=== PATIENT | female | born 1965 ===

== ENCOUNTER 2018-08-14 22:11 | Inpatient (IN) | payer SELFPAY ==
[2018-08-15 00:30] LABS: BASO % 0.4 % (0.0-2.0); HEMOGLOBIN 14.3 g/dL (12.0-16.0); MEAN CELL VOLUME 88.2 fl (81.0-99.0); MEAN CORPUSCULAR HEMOGLOBIN 28.6 pg (27.0-31.0); MEAN CORPUSCULAR HGB CONC 32.4 g/dL (33.0-37.0); MEAN PLATELET VOLUME 11.6 fl (7.2-11.7); MONO # 0.7 K/uL (0.0-0.8); MONO % 13.6 % (0.0-10.0); NEUT # 3.4 K/uL (1.8-7.0); RBC 5.01 Mil/uL (3.80-5.20); RED CELL DISTRIBUTION WIDTH 13.5 % (11.5-14.5); WHITE BLOOD COUNT 5.2 K/uL (4.8-10.8)
--- NOTE | 2018-08-15 00:41 | ED PDOC ---
HPI: Altered Mental Status Time Seen by Provider: 08/14/18 22:43 Chief Complaint (Nursing): Flu-like Symptoms Chief Complaint (Provider): AMS History Per: Patient, Family () History/Exam Limitations: Clinical Condition Onset/Duration Of Symptoms: Days (x1 (Sunday)) Additional Complaint(s): 53 y/o female with no significant PMHx was brought to the ED by for evaluation of AMS, since yesterday. brought her to the ED because she was talking nonsensically since Sunday. He states that at times she has been complaining of headaches. She is emotionally labile and at appears confused at time. When provider spoke with patient she appears to be internally preoccupied. Patient does not report consistently and appears to be responding to some internal stimulus. Patient denies pain but had headache earlier. Provider asked patient if she has been preoccupied and patient says yes, she hasn't spoken to her mother for a year. However, reports she spoke to her mother a month ago. Denies associated fever, chills, nausea, or vomiting. Patient is able to walk but reports she appears unsteady at times. NIHSS Stroke Scale - Date/Time Evaluation Performed Date Performed: 08/15/18 - How Severe is the Stroke Level of Consciousness: 0=Alert LOC to Questions: 0=Both comments correct LOC to commands: 0=Obeys both correctly Best Gaze: 0=Normal Visual: 0=No visual loss Facial: 0=Normal Motor Arm - Left: 0=No drift Motor Arm - Right: 0=No drift Motor Leg - Left: 0=No drift Motor Leg - Right: 0=No drift Limb Ataxia: 0=Absent Sensory: 0=Normal Best Language: 0=No aphasia Dysarthia: 0=Normal articulation Extinction & Inattention (Neglect): 0=Normal, no object Score: 0 Past Medical History Reviewed: Historical Data, Nursing Documentation, Vital Signs Vital Signs: Last Vital Signs Temp 98.4 F 08/14/18 22:34 Pulse 75 08/14/18 22:34 Resp 16 08/14/18 22:34 BP 116/64 08/14/18 22:34 Pulse Ox 98 08/14/18 22:34 - Medical History PMH: No Chronic Diseases - Surgical History Surgical History: - Family History Family History: States: Unknown Family Hx - Social History Current smoker - smoking cessation education provided: No Alcohol: None Drugs: Denies - Home Medications Home Medications: Ambulatory Orders Medication Instructions Recorded RX: No Known Home Med 08/15/18 - Allergies Allergies/Adverse Reactions: Allergies Allergy/AdvReac Type Severity Reaction Status Date / Time No Known Allergies Allergy Verified 08/14/18 23:37 Review of Systems ROS Statement: Except As Marked, All Systems Reviewed And Found Negative Constitutional: Negative for: Fever, Chills Gastrointestinal: Negative for: Nausea, Vomiting Neurological: Positive for: Confusion, Altered Mental Status, Headache Physical Exam - Reviewed Nursing Documentation Reviewed: Yes Vital Signs Reviewed: Yes - Physical Exam Appears: Positive for: Well, Non-toxic, No Acute Distress Head Exam: Positive for: ATRAUMATIC, NORMAL INSPECTION, NORMOCEPHALIC Skin: Positive for: Normal Color, Warm, DRY Eye Exam: Positive for: EOMI, Normal appearance, PERRL ENT: Positive for: Normal ENT Inspection Neck: Positive for: Normal, Painless ROM, Supple (Kernig and Budzinski are negative) Cardiovascular/Chest: Positive for: Regular Rate, Rhythm. Negative for: Murmur Respiratory: Positive for: Normal Breath Sounds. Negative for: Respiratory Distress Gastrointestinal/Abdominal: Positive for: Normal Exam, Soft. Negative for: Tenderness Back: Positive for: Normal Inspection Extremity: Positive for: Normal ROM. Negative for: Pedal Edema, Deformity Neurologic/Psych: Positive for: Alert, anode builder II-XII, Oriented (x2; person and place; disoriented to time), Mood/Affect (Internally preoccupied; affect flat), Gait (steady). Negative for: Motor/Sensory Deficits, Aphasia (clear speech), Facial Droop - Laboratory Results Result Diagrams: 08/14/18 23:50 08/14/18 23:50 - ECG O2 Sat by Pulse Oximetry: 98 (RA) Pulse Ox Interpretation: Normal Medical Decision Making Medical Decision Making: Time: 23:37 Initial Impression: 53 y/o with mental status changes. Possible acute stress reaction vs. psychotic episode. Initial Plan: * CT Head * Labs 00:34 CT head FINDINGS: BRAIN No evidence for acute intracranial hemorrhage. VENTRICLES: No hydrocephalus. ORBITS: The orbits are unremarkable. SINUSES AND MASTOIDS: The paranasal sinuses and mastoid air cells are clear. BONES: No evidence for displaced calvarial fracture. SOFT TISSUES: The visualized extracranial soft tissues are unremarkable. The paranasal sinuses are clear. The mastoid air cells are normally aerated. MISCELLANEOUS: No evidence for acute territorial infarction. IMPRESSION: 1. No evidence for acute intracranial abnormality. 01:[address] reviewed show no clinically significant abnormalities. Patient was evaluated by crisis and was cleared. However, in provider's opinion patient's mentation is inappropriate for discharge. Patient is slow to to respond and unable to provide responses to basic questions such as month, year, place of employment and occupation. Patient will be admitted for further work up including Neurology and Psychiatric consult. Case referred to Dr. Mesa. Diagnosis is Altered Mental status. Scribe Attestation: Documented by Jaems Lopez acting as a scribe for Conrado Lee MD. Provider Scribe Attestation: All medical record entries made by the Scribe were at my direction and personally dictated by me. I have reviewed the chart and agree that the record accurately reflects my personal performance of the history, physical exam, medical decision making, and the department course for this patient. I have also personally directed, reviewed, and agree with the discharge instructions and disposition. Disposition - Clinical Impression Clinical Impression: Altered mental status - Patient ED Disposition Is Patient to be Admitted: Yes - Disposition Disposition Time: 01:30 Condition: FAIR
[2018-08-15 00:42] LABS: ALB/GLOB RATIO 1.2 (1.0-2.1); ALBUMIN 4.3 g/dL (3.5-5.0); ALT/SGPT 31 U/L (9-52); AST/SGOT 33 U/L (14-36); BLOOD UREA NITROGEN 15 mg/dl (7-17); CALCIUM 9.3 mg/dL (8.4-10.2); GFR NON-AFRICAN AMERICAN > 60
--- NOTE | 2018-08-15 02:27 | CP.PCM.HP ---
<Maria Ines Goss - Last Filed: 08/15/18 02:27> History of Present Illness - History of Present Illness History of Present Illness: 53 yo F with no known significant medical history, admitted due to AMS. Pt was brought to the ED by for evaluation of AMS, which states started on Saturday 08/12, and worsened by 08/14, which is when he brought her in. As per ED note, claims she was talking nonsensically since Sunday morning and has been complaining of a headache. He states that for the past 2 days, she has been crying all day and does not answer him why, but he thought it was because of her headache. Patient's behavior is observed to be bizarre and she cannot provide meaningful history, does not give consistent answers and appears preoccupied. She is AAO x 2 ; self and president; does not know date. When observed in ED, she was dressed in regular clothes rather than hospital gown; as per ED RN, she changed back into regular clothes on her own, however did not understand what to do with the gown when it was initially given to her and needed 2 people to help her change. Denies auditory/visual hallucinations. States she has mild headache now but only when prompted specifically about it, otherwise states she does not feel pain/is unbothered. As per ED note, patient stated she has not talked to her mother in 1 year, but states she spoke with her recently; patient does not correct upon hearing this. She remains with flat affect as describes that he does not know why she is acting differently. Denies associated fever, chills, nausea, or vomiting, chest pain, difficulty breathing, difficulty voiding/stooling; denies recent illness (though as per ice cream vault worker note, stated that she had cough/fever on Sunday, but den ied to this pattern chart writer). Patient is able to walk but reports she appears unsteady at times. No PMD MEd hx: none, denies Surg hx: c-sec 2003 in [place] Fam hx: no family history of chronic or psych issues, as per pt's Soc hx: no tobacco, alcohol or drugs; lives with and 14 yr old daughter Allergies: nkda Medications: none ED course: Vitals stable; BP 116/64, HR 75, O2 sat 98 on RA, RR 16, T 98.4 Labs show no electrolyte abnormalities or derangement, ammonia low, troponin neg CT head: Impresssion: No evidence for acute intracranial abnormality. UDS ordered UA ordered Crisis eval Art Educator eval pt - as per ice cream vault worker, pt cleared. Present on Admission - Present on Admission Any Indicators Present on Admission: No Review of Systems - Review of Systems Review of Systems: limited ROS as per HPI Past Patient History - Past Social History Alcohol: None Drugs: Denies - CARDIAC Hx Cardiac Disorders: No Hx Hypertension: No - PULMONARY Hx Tuberculosis: No - NEUROLOGICAL HX Cerebrovascular Accident: No Hx Seizures: No - HEMATOLOGICAL/ONCOLOGICAL Hx Cancer: No Hx Human Immunodeficiency Virus (HIV): No - GENITOURINARY/GYNECOLOGICAL Hx Sexually Transmitted Disorders: No - PSYCHIATRIC Hx Substance Use: No - SURGICAL HISTORY Hx Section: Yes Meds Allergies/Adverse Reactions: Allergies Allergy/AdvReac Type Severity Reaction Status Date / Time No Known Allergies Allergy Verified 08/14/18 23:37 Physical Exam - Constitutional Appears: No Acute Distress - Head Exam Head Exam: NORMAL INSPECTION - Eye Exam Eye Exam: EOMI, Normal appearance, PERRL - ENT Exam ENT Exam: Normal Oropharynx - Neck Exam Neck exam: Positive for: Full Rom, Normal Inspection. Negative for: Meningismus, Tenderness - Respiratory Exam Respiratory Exam: Clear to Auscultation Bilateral, NORMAL BREATHING PATTERN. absent: Wheezes, Respiratory Distress - Cardiovascular Exam Cardiovascular Exam: REGULAR RHYTHM, +S1, +S2 - GI/Abdominal Exam GI & Abdominal Exam: Soft. absent: Tenderness Additional comments: obese - Extremities Exam Extremities exam: Positive for: full ROM, normal capillary refill, normal inspection. Negative for: calf tenderness, pedal edema - Neurological Exam Neurological exam: Alert Additional comments: AAO x 2 ; self and president. Does not know date. Moves all 4 extremities spontaneously No nystagmus 5/5 strength in all 4 ext Neg Kernig sign Neg Brudzinski sign - Psychiatric Exam Psychiatric exam: Flat Affect Additional comments: flat affect, appears preoccupied, bizarre behavior - Skin Skin Exam: Dry, Intact Additional comments: no bruises seen in exposed areas Results - Vital Signs Recent Vital Signs: Last Vital Signs Temp 98.4 F 08/14/18 22:34 Pulse 75 08/14/18 22:34 Resp 16 08/14/18 22:34 BP 116/64 08/14/18 22:34 Pulse Ox 98 08/15/18 01:33 - Labs Result Diagrams: 08/14/18 23:50 08/14/18 23:50 Labs: Laboratory Results - last 24 hr 08/14/18 08/14/18 08/14/18 23:50 23:50 23:50 WBC 5.2 RBC 5.01 Hgb 14.3 Hct 44.2 MCV 88.2 MCH 28.6 MCHC 32.4 L RDW 13.5 Plt Count 111 L MPV 11.6 Neut % (Auto) 66.0 Lymph % (Auto) 20.0 [place] % (Auto) 13.6 H Eos % (Auto) 0.0 Baso % (Auto) 0.4 Neut # (Auto) 3.4 Lymph # (Auto) 1.0 [place] # (Auto) 0.7 Eos # (Auto) 0.0 Baso # (Auto) 0.0 Sodium 138 Potassium 3.7 Chloride 99 Carbon Dioxide 26 Anion Gap 17 BUN 15 Creatinine 0.8 Est GFR ( Amer) > 60 Est GFR (Non-Af Amer) > 60 POC Glucose (mg/dL) Random Glucose 106 H Lactic Acid Calcium 9.3 Magnesium 2.1 Total Bilirubin 0.5 AST 33 ALT 31 Alkaline Phosphatase 107 Ammonia < 9 L Troponin I < 0.0120 Total Protein 7.7 Albumin 4.3 Globulin 3.5 Albumin/Globulin Ratio 1.2 Alcohol, Quantitative < 10 08/14/18 08/14/18 23:50 23:50 WBC RBC Hgb Hct MCV MCH MCHC RDW Plt Count MPV Neut % (Auto) Lymph % (Auto) [place] % (Auto) Eos % (Auto) Baso % (Auto) Neut # (Auto) Lymph # (Auto) [place] # (Auto) Eos # (Auto) Baso # (Auto) Sodium Potassium Chloride Carbon Dioxide Anion Gap BUN Creatinine Est GFR ( Amer) Est GFR (Non-Af Amer) POC Glucose (mg/dL) 109 Random Glucose Lactic Acid 1.0 Calcium Magnesium Total Bilirubin AST ALT Alkaline Phosphatase Ammonia Troponin I Total Protein Albumin Globulin Albumin/Globulin Ratio Alcohol, Quantitative Assessment & Plan - Assessment and Plan (Free Text) Assessment: 53 yo F with no known significant medical history, admitted due to AMS. Plan: Altered Mental Status - Continue workup to r/o organic cause - UA - TSH - B12 - RPR - HIV - UDS - Upreg - CBC - CMP - MRI brain w/ and w/o contrast - Fall risk - Psych consult Diet - Reg diet DVT prophylaxis - SCD for now Patient seen/examined w/ Dr. Mesa. <MosheJoshua - Last Filed: 08/15/18 06:40> Results - Vital Signs Recent Vital Signs: Last Vital Signs Temp 98.1 F 08/15/18 04:42 Pulse 64 08/15/18 04:42 Resp 19 08/15/18 04:42 BP 117/75 08/15/18 04:42 Pulse Ox 97 08/15/18 04:42 - Labs Result Diagrams: 08/14/18 23:50 08/14/18 23:50 Labs: Laboratory Results - last 24 hr 08/14/18 08/14/18 08/14/18 23:50 23:50 23:50 WBC 5.2 RBC 5.01 Hgb 14.3 Hct 44.2 MCV 88.2 MCH 28.6 MCHC 32.4 L RDW 13.5 Plt Count 111 L MPV 11.6 Neut % (Auto) 66.0 Lymph % (Auto) 20.0 [place] % (Auto) 13.6 H Eos % (Auto) 0.0 Baso % (Auto) 0.4 Neut # (Auto) 3.4 Lymph # (Auto) 1.0 [place] # (Auto) 0.7 Eos # (Auto) 0.0 Baso # (Auto) 0.0 Sodium 138 Potassium 3.7 Chloride 99 Carbon Dioxide 26 Anion Gap 17 BUN 15 Creatinine 0.8 Est GFR ( Amer) > 60 Est GFR (Non-Af Amer) > 60 POC Glucose (mg/dL) Random Glucose 106 H Lactic Acid Calcium 9.3 Magnesium 2.1 Total Bilirubin 0.5 AST 33 ALT 31 Alkaline Phosphatase 107 Ammonia < 9 L Troponin I < 0.0120 Total Protein 7.7 Albumin 4.3 Globulin 3.5 Albumin/Globulin Ratio 1.2 Alcohol, Quantitative < 10 08/14/18 08/14/18 23:50 23:50 WBC RBC Hgb Hct MCV MCH MCHC RDW Plt Count MPV Neut % (Auto) Lymph % (Auto) [place] % (Auto) Eos % (Auto) Baso % (Auto) Neut # (Auto) Lymph # (Auto) [place] # (Auto) Eos # (Auto) Baso # (Auto) Sodium Potassium Chloride Carbon Dioxide Anion Gap BUN Creatinine Est GFR ( Amer) Est GFR (Non-Af Amer) POC Glucose (mg/dL) 109 Random Glucose Lactic Acid 1.0 Calcium Magnesium Total Bilirubin AST ALT Alkaline Phosphatase Ammonia Troponin I Total Protein Albumin Globulin Albumin/Globulin Ratio Alcohol, Quantitative Attending/Attestation - Attestation I have personally seen and examined this patient.: Yes I have fully participated in the care of the patient.: Yes I have reviewed all pertinent clinical information: Yes Notes (Text): 08/15/18 05:43 I saw and examined this patient shoulder to shoulder with Dr Goss. I agree with the assessment and plan This is a 53 years old female brought to the ED with 2-3 days of mild diffuse headache, dizziness body aches and subjective fever. She appears to have unsteady gait, poor memory having to look at her for to answer, confused. Flat affect, an unconscious restlessness in bed, appearing as if she wants to get out of the bed. Appearing as a patient in a prolonged post ictal state vs a depressive state, r/o influenza encephalitis. Head CT read as no pathological findings. We will follow Influenza A&B antibody, Drug Screen, TSH, B12 level, RPR, HIV and MRI brain with and without contrast Consult Psychiatry We will consult Neurology for possible seizure. Joshua Mesa MD
[2018-08-15 06:28] LABS: BASO % 0.6 % (0.0-2.0); EOS % 0.1 % (0.0-4.0); HEMOGLOBIN 13.9 g/dL (12.0-16.0); LYMPH # 0.7 K/uL (1.0-4.3); LYMPH % 21.9 % (20.0-40.0); MEAN CELL VOLUME 87.9 fl (81.0-99.0); MEAN CORPUSCULAR HEMOGLOBIN 28.5 pg (27.0-31.0); MEAN CORPUSCULAR HGB CONC 32.4 g/dL (33.0-37.0); MEAN PLATELET VOLUME 10.9 fl (7.2-11.7); MONO # 0.4 K/uL (0.0-0.8); MONO % 13.9 % (0.0-10.0); NEUT # 2.1 K/uL (1.8-7.0); NEUT % 63.5 % (50.0-75.0); RBC 4.9 Mil/uL (3.80-5.20); RED CELL DISTRIBUTION WIDTH 13.7 % (11.5-14.5); WHITE BLOOD COUNT 3.2 K/uL (4.8-10.8)
[2018-08-15 06:42] LABS: BLOOD UREA NITROGEN 15 mg/dl (7-17); CALCIUM 9.1 mg/dL (8.4-10.2); GFR NON-AFRICAN AMERICAN > 60
[2018-08-15] MEDS ORDERED: Potassium Chloride 20 mEq/15 ml LIQ UD PO ONE (08:00)
--- NOTE | 2018-08-15 08:04 | CP.PCM.CON ---
History of Present Illness - History of Present Illness History of Present Illness: Psychiatry consult note CC: AMS HPI: 53 yo female w/ no past psychiatric history, presented w/ AMS. Patient is currently A + O x self and hospital. She denies acute depression/anxiety/AH/VH/paranoia/delusions/SI/HI. Patient denies acute psychiatric complaints. She is a poor historian and history below obtained from chart. No PMD MEd hx: none, denies Surg hx: c-sec 2003 in [facility] hx: no family history of chronic or psych issues, as per pt's Soc hx: no tobacco, alcohol or drugs; lives with and 14 yr old daughter Allergies: nkda Medications: none CT head: Impresssion: No evidence for acute intracranial abnormality. Impression: 53 yo female w/ no past psychiatric history presents w/ AMS, likely secondary to acute medical condition. No acute psychiatric diagnosis at this time. -No 1:1 or psychiatric admission indicated at this time -No acute psychiatric medications indicated Past Patient History - Past Medical History & Family History Past Medical History?: No - Past Social History Alcohol: None Drugs: Denies - CARDIAC Hx Cardiac Disorders: No Hx Hypertension: No - PULMONARY Hx Respiratory Disorders: No Hx Tuberculosis: No - NEUROLOGICAL Hx Neurological Disorder: No HX Cerebrovascular Accident: No Hx Seizures: No - HEENT Hx HEENT Problems: No - RENAL Hx Chronic Kidney Disease: No - ENDOCRINE/METABOLIC Hx Endocrine Disorders: No - HEMATOLOGICAL/ONCOLOGICAL Hx Blood Disorders: No Hx Cancer: No Hx Human Immunodeficiency Virus (HIV): No - INTEGUMENTARY Hx Dermatological Problems: No - MUSCULOSKELETAL/RHEUMATOLOGICAL Hx Musculoskeletal Disorders: No Hx Falls: No - GASTROINTESTINAL Hx Gastrointestinal Disorders: No - GENITOURINARY/GYNECOLOGICAL Hx Genitourinary Disorders: No Hx Sexually Transmitted Disorders: No - PSYCHIATRIC Hx Psychophysiologic Disorder: No Hx Substance Use: No - SURGICAL HISTORY Hx Surgeries: Yes Hx Section: Yes - ANESTHESIA Hx Anesthesia: Yes Hx Anesthesia Reactions: No Hx Malignant Hyperthermia: No Has any member of the family had a problem w/ anesthesia?: No Meds Allergies/Adverse Reactions: Allergies Allergy/AdvReac Type Severity Reaction Status Date / Time No Known Allergies Allergy Verified 08/14/18 23:37 - Medications Medications: Current Medications Acetaminophen (Tylenol 325mg Tab) 325 mg PO Q4 PRN PRN Reason: Headache Results - Vital Signs Recent Vital Signs: Last Vital Signs Temp 97.5 F L 08/15/18 07:50 Pulse 58 L 08/15/18 07:50 Resp 19 08/15/18 07:50 BP 101/65 08/15/18 07:50 Pulse Ox 98 08/15/18 07:50 - Labs Result Diagrams: 08/15/18 05:45 08/15/18 05:45 Labs: Laboratory Results - last 24 hr 08/14/18 08/14/18 08/14/18 23:50 23:50 23:50 WBC 5.2 RBC 5.01 Hgb 14.3 Hct 44.2 MCV 88.2 MCH 28.6 MCHC 32.4 L RDW 13.5 Plt Count 111 L MPV 11.6 Neut % (Auto) 66.0 Lymph % (Auto) 20.0 [place] % (Auto) 13.6 H Eos % (Auto) 0.0 Baso % (Auto) 0.4 Neut # (Auto) 3.4 Lymph # (Auto) 1.0 [place] # (Auto) 0.7 Eos # (Auto) 0.0 Baso # (Auto) 0.0 Sodium 138 Potassium 3.7 Chloride 99 Carbon Dioxide 26 Anion Gap 17 BUN 15 Creatinine 0.8 Est GFR ( Amer) > 60 Est GFR (Non-Af Amer) > 60 POC Glucose (mg/dL) Random Glucose 106 H Lactic Acid Calcium 9.3 Magnesium 2.1 Total Bilirubin 0.5 AST 33 ALT 31 Alkaline Phosphatase 107 Ammonia < 9 L Troponin I < 0.0120 Total Protein 7.7 Albumin 4.3 Globulin 3.5 Albumin/Globulin Ratio 1.2 Vitamin B12 TSH 3rd Generation Alcohol, Quantitative < 10 08/14/18 08/14/18 08/15/18 23:50 23:50 05:45 WBC 3.2 L RBC 4.90 Hgb 13.9 Hct 43.0 MCV 87.9 MCH 28.5 MCHC 32.4 L RDW 13.7 Plt Count 103 L MPV 10.9 Neut % (Auto) 63.5 Lymph % (Auto) 21.9 [place] % (Auto) 13.9 H Eos % (Auto) 0.1 Baso % (Auto) 0.6 Neut # (Auto) 2.1 Lymph # (Auto) 0.7 L [place] # (Auto) 0.4 Eos # (Auto) 0.0 Baso # (Auto) 0.0 Sodium Potassium Chloride Carbon Dioxide Anion Gap BUN Creatinine Est GFR ( Amer) Est GFR (Non-Af Amer) POC Glucose (mg/dL) 109 Random Glucose Lactic Acid 1.0 Calcium Magnesium Total Bilirubin AST ALT Alkaline Phosphatase Ammonia Troponin I Total Protein Albumin Globulin Albumin/Globulin Ratio Vitamin B12 TSH 3rd Generation Alcohol, Quantitative 08/15/18 05:45 WBC RBC Hgb Hct MCV MCH MCHC RDW Plt Count MPV Neut % (Auto) Lymph % (Auto) [place] % (Auto) Eos % (Auto) Baso % (Auto) Neut # (Auto) Lymph # (Auto) [place] # (Auto) Eos # (Auto) Baso # (Auto) Sodium 139 Potassium 3.5 L Chloride 101 Carbon Dioxide 24 Anion Gap 18 BUN 15 Creatinine 0.7 Est GFR ( Amer) > 60 Est GFR (Non-Af Amer) > 60 POC Glucose (mg/dL) Random Glucose 102 Lactic Acid Calcium 9.1 Magnesium Total Bilirubin AST ALT Alkaline Phosphatase Ammonia Troponin I Total Protein Albumin Globulin Albumin/Globulin Ratio Vitamin B12 407 TSH 3rd Generation 3.75 Alcohol, Quantitative
--- NOTE | 2018-08-15 10:14 | CARD ---
APPROVED REPORT Date of service: 08/15/2018 EKG Measurement Heart [id number] <Conclusion> Normal sinus rhythm Normal ECG
--- NOTE | 2018-08-15 10:30 | CT ---
Date of service: 08/14/2018 PROCEDURE: CT HEAD WITHOUT CONTRAST. HISTORY: headache COMPARISON: None available. TECHNIQUE: Axial computed tomography images were obtained through the head/brain without intravenous contrast. Radiation dose: Total exam DLP = 905.85 mGy-cm. This CT exam was performed using one or more of the following dose reduction techniques: Automated exposure control, adjustment of the mA and/or kV according to patient size, and/or use of iterative reconstruction technique. FINDINGS: HEMORRHAGE: No intracranial hemorrhage. BRAIN: Khalil-white matter differentiation is preserved. There is no mass, mass effect or abnormal extra-axial fluid collection. There is no territorial infarction. The midline sagittal structures are normal. VENTRICLES: There is mild asymmetric atrophy of the left parietal lobe. No hydrocephalus. CALVARIUM: There is no calvarial fracture or extracranial soft tissue swelling. PARANASAL SINUSES: There is mild mucosal thickening in the left maxillary sinus. The remaining included paranasal sinuses are clear. MASTOID AIR CELLS: Predominantly clear. OTHER FINDINGS: None. IMPRESSION: No acute intracranial abnormality. A preliminary report was provided by [employer].
--- NOTE | 2018-08-15 10:44 | CP.PCM.CON ---
History of Present Illness - History of Present Illness History of Present Illness: Neurology Consultation Note: Consult requested by Dr. Mesa Mrs. Lloyd is a 53-year-old woman with no significant past medical history, who was brought in by family for a 3 day progressive alteration in mental status. According to the history, the patient has been behaving abnormally, saying non- sensical things and disoriented. After being interviewed by psychiatry, she does not appear to have a clear psychiatric illness. CT scan of the head showed some asymmetry in the frontal lobes, but no acute findings. Neurology was con sulted for altered mental status. Review of Systems - Review of Systems Systems not reviewed;Unavailable: Altered Mental Status Past Patient History - Past Medical History & Family History Past Medical History?: No - Past Social History Alcohol: None Drugs: Denies - CARDIAC Hx Cardiac Disorders: No Hx Hypertension: No - PULMONARY Hx Respiratory Disorders: No Hx Tuberculosis: No - NEUROLOGICAL Hx Neurological Disorder: No HX Cerebrovascular Accident: No Hx Seizures: No - HEENT Hx HEENT Problems: No - RENAL Hx Chronic Kidney Disease: No - ENDOCRINE/METABOLIC Hx Endocrine Disorders: No - HEMATOLOGICAL/ONCOLOGICAL Hx Blood Disorders: No Hx Cancer: No Hx Human Immunodeficiency Virus (HIV): No - INTEGUMENTARY Hx Dermatological Problems: No - MUSCULOSKELETAL/RHEUMATOLOGICAL Hx Musculoskeletal Disorders: No Hx Falls: No - GASTROINTESTINAL Hx Gastrointestinal Disorders: No - GENITOURINARY/GYNECOLOGICAL Hx Genitourinary Disorders: No Hx Sexually Transmitted Disorders: No - PSYCHIATRIC Hx Psychophysiologic Disorder: No Hx Substance Use: No - SURGICAL HISTORY Hx Surgeries: Yes Hx Section: Yes - ANESTHESIA Hx Anesthesia: Yes Hx Anesthesia Reactions: No Hx Malignant Hyperthermia: No Has any member of the family had a problem w/ anesthesia?: No Meds Allergies/Adverse Reactions: Allergies Allergy/AdvReac Type Severity Reaction Status Date / Time No Known Allergies Allergy Verified 08/14/18 23:37 - Medications Medications: Current Medications Acetaminophen (Tylenol 325mg Tab) 325 mg PO Q4 PRN PRN Reason: Headache Physical Exam - Constitutional Appears: Well - Head Exam Head Exam: ATRAUMATIC, NORMAL INSPECTION, NORMOCEPHALIC - Eye Exam Eye Exam: EOMI, Normal appearance, PERRL Pupil Exam: NORMAL ACCOMODATION, PERRL - ENT Exam ENT Exam: Mucous Membranes Moist, Normal Exam - Neck Exam Neck exam: Positive for: Normal Inspection - Respiratory Exam Respiratory Exam: Clear to Auscultation Bilateral, NORMAL BREATHING PATTERN - Cardiovascular Exam Cardiovascular Exam: REGULAR RHYTHM, +S1, +S2 - GI/Abdominal Exam GI & Abdominal Exam: Normal Bowel Sounds, Soft. absent: Tenderness - Rectal Exam Rectal Exam: Deferred - Extremities Exam Extremities exam: Positive for: normal inspection - Back Exam Back exam: NORMAL INSPECTION - Neurological Exam Neurological exam: Alert, Altered, CN II-XII Intact, Normal Gait, Reflexes Normal Additional comments: Confused about date, time, location and appears to be bradyphrenic. She is able to ambulate normally, and has no focal motor or sensory deficits. No abnormal movements noted. - Psychiatric Exam Psychiatric exam: Normal Affect, Normal Mood - Skin Skin Exam: Dry, Intact, Normal Color, Warm Results - Vital Signs Recent Vital Signs: Last Vital Signs Temp 97.5 F L 08/15/18 07:50 Pulse 58 L 08/15/18 07:50 Resp 19 08/15/18 07:50 BP 101/65 08/15/18 07:50 Pulse Ox 98 08/15/18 07:50 - Labs Result Diagrams: 08/15/18 05:45 08/15/18 05:45 Labs: Laboratory Results - last 24 hr 08/14/18 08/14/18 08/14/18 23:50 23:50 23:50 WBC 5.2 RBC 5.01 Hgb 14.3 Hct 44.2 MCV 88.2 MCH 28.6 MCHC 32.4 L RDW 13.5 Plt Count 111 L MPV 11.6 Neut % (Auto) 66.0 Lymph % (Auto) 20.0 [place] % (Auto) 13.6 H Eos % (Auto) 0.0 Baso % (Auto) 0.4 Neut # (Auto) 3.4 Lymph # (Auto) 1.0 [place] # (Auto) 0.7 Eos # (Auto) 0.0 Baso # (Auto) 0.0 Sodium 138 Potassium 3.7 Chloride 99 Carbon Dioxide 26 Anion Gap 17 BUN 15 Creatinine 0.8 Est GFR ( Amer) > 60 Est GFR (Non-Af Amer) > 60 POC Glucose (mg/dL) Random Glucose 106 H Lactic Acid Calcium 9.3 Magnesium 2.1 Total Bilirubin 0.5 AST 33 ALT 31 Alkaline Phosphatase 107 Ammonia < 9 L Troponin I < 0.0120 Total Protein 7.7 Albumin 4.3 Globulin 3.5 Albumin/Globulin Ratio 1.2 Vitamin B12 TSH 3rd Generation Alcohol, Quantitative < 10 HIV-1 Ab Rapid Screen 08/14/18 08/14/18 08/15/18 23:50 23:50 05:45 WBC 3.2 L RBC 4.90 Hgb 13.9 Hct 43.0 MCV 87.9 MCH 28.5 MCHC 32.4 L RDW 13.7 Plt Count 103 L MPV 10.9 Neut % (Auto) 63.5 Lymph % (Auto) 21.9 [place] % (Auto) 13.9 H Eos % (Auto) 0.1 Baso % (Auto) 0.6 Neut # (Auto) 2.1 Lymph # (Auto) 0.7 L [place] # (Auto) 0.4 Eos # (Auto) 0.0 Baso # (Auto) 0.0 Sodium Potassium Chloride Carbon Dioxide Anion Gap BUN Creatinine Est GFR ( Amer) Est GFR (Non-Af Amer) POC Glucose (mg/dL) 109 Random Glucose Lactic Acid 1.0 Calcium Magnesium Total Bilirubin AST ALT Alkaline Phosphatase Ammonia Troponin I Total Protein Albumin Globulin Albumin/Globulin Ratio Vitamin B12 TSH 3rd Generation Alcohol, Quantitative HIV-1 Ab Rapid Screen 08/15/18 08/15/18 05:45 07:20 WBC RBC Hgb Hct MCV MCH MCHC RDW Plt Count MPV Neut % (Auto) Lymph % (Auto) [place] % (Auto) Eos % (Auto) Baso % (Auto) Neut # (Auto) Lymph # (Auto) [place] # (Auto) Eos # (Auto) Baso # (Auto) Sodium 139 Potassium 3.5 L Chloride 101 Carbon Dioxide 24 Anion Gap 18 BUN 15 Creatinine 0.7 Est GFR ( Amer) > 60 Est GFR (Non-Af Amer) > 60 POC Glucose (mg/dL) Random Glucose 102 Lactic Acid Calcium 9.1 Magnesium Total Bilirubin AST ALT Alkaline Phosphatase Ammonia Troponin I Total Protein Albumin Globulin Albumin/Globulin Ratio Vitamin B12 407 TSH 3rd Generation 3.75 Alcohol, Quantitative HIV-1 Ab Rapid Screen Non reactive Assessment & Plan (1) Acute encephalopathy Assessment and Plan: At this point it is difficult to determine what the underlying cause is. I recommend obtaining an MRI of the brain with and without contrast as well as an EEG to evaluate for underlying mass lesion or epileptiform activity, r espectively. This does not appear to be an encephalitis, since there is no fever or other signs of infection. I also recommend checking B12, folate, TSH, vitamin D, vitamin E, heavy metal screen. Thank you for this consultation. Status: Acute
--- NOTE | 2018-08-15 11:06 | RAD ---
Date of service: 08/15/2018 HISTORY: r/o infectious cause of ams COMPARISON: None available TECHNIQUE: Chest PA and lateral FINDINGS: LUNGS: No active pulmonary disease. PLEURA: No significant pleural effusion identified. No pneumothorax apparent. CARDIOVASCULAR: No aortic atherosclerotic calcification present. Normal cardiac size. No pulmonary vascular congestion. OSSEOUS STRUCTURES: No significant abnormalities. VISUALIZED UPPER ABDOMEN: Normal. OTHER FINDINGS: None. IMPRESSION: No active disease.
[2018-08-15 11:47] LABS: SQUAMOUS EPITHIAL 5 /hpf (0-5); URINE BACTERIA MOD (<OCC); URINE BILIRUBIN NEGATIVE (NEGATIVE); URINE BLOOD NEGATIVE (NEGATIVE); URINE CLARITY CLOUDY (Clear); URINE COLOR AMBER (YELLOW); URINE GLUCOSE (UA) NEG (NEGATIVE); URINE LEUKOCYTE ESTERASE TRACE Leu/uL (Negative); URINE PROTEIN 30 mg/dL (NEGATIVE)
[2018-08-15 12:03] LABS: BARBITURATES, UR NEGATIVE (NEGATIVE); BENZODIAZEPINES, UR NEGATIVE (NEGATIVE); OPIATES, UR NEGATIVE (NEGATIVE); PHENCYCLIDINE, UR NEGATIVE (NEGATIVE)
[2018-08-15] MEDS ORDERED: Nitrofurantoin 25 MG/5 ML SUSP PO SCH (16:00)
[2018-08-15] MEDS ORDERED: Gadodiamide 287 MG/ML VIAL (15ML) IV ONE (16:15)
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
[2018-08-16 11:14] LABS: BASO % 0.5 % (0.0-2.0); EOS % 0.3 % (0.0-4.0); HEMOGLOBIN 14.5 g/dL (12.0-16.0); LYMPH # 0.9 K/uL (1.0-4.3); LYMPH % 21.1 % (20.0-40.0); MEAN CORPUSCULAR HEMOGLOBIN 28.3 pg (27.0-31.0); MEAN CORPUSCULAR HGB CONC 31.8 g/dL (33.0-37.0); MEAN PLATELET VOLUME 11.4 fl (7.2-11.7); MONO # 0.6 K/uL (0.0-0.8); MONO % 12.9 % (0.0-10.0); NEUT # 2.9 K/uL (1.8-7.0); NEUT % 65.2 % (50.0-75.0); NRBC % 0.1 % (0.0-0.0); RBC 5.12 Mil/uL (3.80-5.20); RED CELL DISTRIBUTION WIDTH 13.7 % (11.5-14.5); WHITE BLOOD COUNT 4.4 K/uL (4.8-10.8)
[2018-08-16 11:33] LABS: ALB/GLOB RATIO 1.3 (1.0-2.1); ALBUMIN 4.3 g/dL (3.5-5.0); ALT/SGPT 45 U/L (9-52); AST/SGOT 43 U/L (14-36); BLOOD UREA NITROGEN 15 mg/dl (7-17); CALCIUM 9.5 mg/dL (8.4-10.2); GFR NON-AFRICAN AMERICAN > 60
--- NOTE | 2018-08-16 12:50 | MRI ---
Date of service: 08/15/2018 PROCEDURE: MRI BRAIN WITH AND WITHOUT CONTRAST HISTORY: AMS. COMPARISON: Comparison made with prior CT scan the brain 08/14/2018. TECHNIQUE: Multiplanar, multisequence MR images of the brain were obtained with and without intravenous contrast enhancement. Approximately 14 cc Omniscan contrast material injected for this examination. FINDINGS: HEMORRHAGE: No acute parenchymal, subarachnoid nor extra-axial hemorrhage. No evidence of hemosiderin deposition is identified on gradient echo weighted sequence DWI: No evidence of an acute or early subacute infarction seen on diffusion imaging. BRAIN PARENCHYMA: No focal areas of abnormal signal seen within the substance of the brain.. No evidence of enhancing parenchymal nor extra-axial masses or collections. No evidence of unusual meningeal enhancement.. Redemonstrated is mild generalized volume loss with more localized cortical atrophic changes right superior frontoparietal region associated with commensurate enlargement of the overlying subarachnoid spaces. ENHANCEMENT: No abnormal intracranial enhancement as detailed above. VENTRICLES: No obstructive hydrocephalus. CRANIUM: Unremarkable. ORBITS: Grossly unremarkable. PARANASAL SINUSES/MASTOIDS: No evidence of acute sinusitis. Minimal mucosal thickening left maxillary antrum. VASCULAR SYSTEM: Visualized major vascular flow voids at skull base patent. OTHER FINDINGS: None . IMPRESSION: No evidence of acute intracranial hemorrhage or infarction. No enhancing lesions. No evidence of significant chronic white matter disease of. Mild generalized volume loss with more localized right superior frontoparietal cortical atrophic changes with enlargement of the overlying subarachnoid spaces.
--- NOTE | 2018-08-16 14:46 | CP.PCM.PN ---
Subjective - Date & Time of Evaluation Date of Evaluation: 08/16/18 Time of Evaluation: 14:43 - Subjective Subjective: Neuro Follow-Up Note: Mrs. Lloyd was evaluated this afternoon at bedside with Dr. Everett and present. Pt currently denies any specific complaints. Her , however, is concerned with this persistent confusion that he admits started on Sunday (08/13/18) after feeling chills with cold-like symptoms on Sunday (08/12/18). La st normal was on 08/11/18. Pt denies dizziness, paresthesias, pain, chills, cough, n/v/d/ Objective - Vital Signs/Intake and Output Vital Signs (last 24 hours): Temp Pulse Resp BP Pulse Ox 98 F 64 19 107/73 98 08/16/18 08:17 08/16/18 08:17 08/16/18 08:17 08/16/18 08:17 08/16/18 08:17 - Medications Medications: Current Medications Acetaminophen (Tylenol 325mg Tab) 325 mg PO Q4 PRN PRN Reason: Headache Last Admin: 08/15/18 20:56 Dose: 325 mg Cholecalciferol (Vitamin D) 1,000 intlu PO DAILY AMADEO Ceftriaxone Sodium 1 gm/ (Sodium Chloride) 100 mls @ 100 mls/hr IVPB DAILY AMADEO; Protocol Last Admin: 08/16/18 09:25 Dose: 100 mls/hr - Labs Labs: 08/16/18 10:00 08/16/18 10:00 - Constitutional Appears: Non-toxic, No Acute Distress, Confused - Head Exam Head Exam: ATRAUMATIC, NORMAL INSPECTION, NORMOCEPHALIC - Eye Exam Eye Exam: EOMI, Normal appearance - ENT Exam ENT Exam: Mucous Membranes Moist - Neck Exam Neck Exam: Full ROM, Normal Inspection - Respiratory Exam Respiratory Exam: NORMAL BREATHING PATTERN - Extremities Exam Extremities Exam: Full ROM - Back Exam Back Exam: Full ROM - Neurological Exam Neurological Exam: Altered, Awake. absent: Oriented x3 Neuro motor strength exam: Left Upper Extremity: 5, Right Upper Extremity: 5, Left Lower Extremity: 5, Right Lower Extremity: 5 Additional comments: Pt is awake, calm, cooperative; confused. Oriented to place and person. Not oriented to time---knows that she is in "[facility]" and that the current president is Trpaul; cannot recall date or year. Speech clear No facial asymmetry No focal motor or sensory deficits noted on exam No abnormal movements to face or extremities - Psychiatric Exam Psychiatric exam: absent: Normal Affect, Normal Mood Additional comments: Confused; knows that she is in "[facility]" and that the current president is Trump. Cannot recall date or year. Recalls daughter's name and age. - Skin Skin Exam: Normal Color Assessment and Plan (1) Acute encephalopathy Assessment & Plan: Imaging reviewed: -MRI Brain (08/15/18): No evidence of acute intracranial hemorrhage or in farction. No enhancing lesions. No evidence of significant chronic white matter disease of. Mild generalized volume loss with more localized right superior frontoparietal cortical atrophic changes with enlargement of the overlying subarachnoid spaces. -CT Head (08/14/18): no acute intracranial abnormality -EEG (08/15/18): normal awake EEG, no seizures -We recommend checking NMDA receptor AB--ordered. -Still pending heavy metal screen to be resulted. -May consider LP if all other blood tests are normal. -Notify neuro team of any acute changes in pt's condition. Summer Melendez DNP, [employer] Case and plan discussed with Dr. Everett Status: Acute
--- NOTE | 2018-08-16 15:12 | PCM.EEG ---
Electroencephalogram Report - Electroencephalogram Report Procedure Date: 08/15/18 Medication: Ceftriaxone Interpretation: Technical Information: This was a 16 -channel EEG, 1-channel EKG routine EEG performed using an [employer] machine. Electrodes were applied using the 10/20 international placement system. Clinical Information: alter mental status During resting wakefulness there was a symmetric posterior dominant rhythm at 8.5-9.5 Hz, 30-50 uV, which was reactive to eye opening and closing. Drowsiness and sleep not seen. Hyperventilation was not performed. Photic stimulation was performed and there were no changes on the record. Focal abnormality; none ECG was associated with a normal sinus rhythm. Impression: This is a normal awake electroencephalogram.
[2018-08-16] MEDS: Cholecalciferol 1,000 INTLU TAB PO SCH (15:23)
[2018-08-16 16:25] LABS: FERRITIN 96.4 ng/Ml (11.1-264.0)
--- NOTE | 2018-08-16 18:23 | US ---
Date of service: 08/16/2018 HISTORY: Rule out abdominal pathology COMPARISON: None. TECHNIQUE: Sonographic evaluation of the abdomen. FINDINGS: LIVER: Measures 13.6 cm. Normal echogenicity of the liver parenchyma. No mass. No intrahepatic bile duct dilatation. GALLBLADDER: Unremarkable. No gallstones.. No sonographic Ross sign reported COMMON BILE DUCT: Measures 5.0 mm. No stones. No dilatation. PANCREAS: Pancreas appears slightly prominent however no obvious mass collection or calcification. No significant pancreatic ductal dilatation.. RIGHT KIDNEY: Measures 9.3 x 3.4 x 4.2cm. Normal echogenicity. No calculus, mass, or hydronephrosis. LEFT KIDNEY: Measures 10.5 x 3.8 x 3.7cm. Normal echogenicity. No calculus, mass, or hydronephrosis. SPLEEN: Normal in size and contour. No mass. AORTA: No aneurysmal dilatation. IVC: Unremarkable. OTHER FINDINGS: None. IMPRESSION: Pancreas appears slightly prominent however no obvious pancreatic mass collection or calcification. No significant pancreatic ductal dilatation..
[2018-08-17 07:58] VITALS: BP 93/60; PULSE 56; RESP 20; TEMP 97.7; O2SAT 96
[2018-08-17 08:55] LABS: BASO % 0.3 % (0.0-2.0); EOS % 0.6 % (0.0-4.0); HEMOGLOBIN 14.5 g/dL (12.0-16.0); LYMPH # 1.5 K/uL (1.0-4.3); MEAN CELL VOLUME 88.1 fl (81.0-99.0); MEAN CORPUSCULAR HEMOGLOBIN 28.6 pg (27.0-31.0); MEAN CORPUSCULAR HGB CONC 32.4 g/dL (33.0-37.0); MONO # 0.4 K/uL (0.0-0.8); MONO % 13.4 % (0.0-10.0); NEUT # 1.4 K/uL (1.8-7.0); NEUT % 41.7 % (50.0-75.0); NRBC % 0.2 % (0.0-0.0); PLATELET COUNT 112 K/uL (130-400); RBC 5.09 Mil/uL (3.80-5.20); RED CELL DISTRIBUTION WIDTH 13.8 % (11.5-14.5); WHITE BLOOD COUNT 3.3 K/uL (4.8-10.8)
[2018-08-17] MEDS: Cholecalciferol 1,000 INTLU TAB PO SCH (09:06)
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
[2018-08-17 10:54] LABS: CERULOPLASMIN 32 mg/dL (18-53)
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
== END 2018-08-17 14:17 | disposition home or self-care (01) | DRG 71 ==
LOC: H.ER 22:11 → H.ERHOLD 08-15 01:15 → H.MEDSURG1 08-15 04:04
PROVIDERS: ADMIT Internal Medicine; ATTEND Internal Medicine
DX: G93.40 Encephalopathy, unspecified (principal); N39.0 Urinary tract infection, site not specified; R51 Headache; R41.0 Disorientation, unspecified; D69.6 Thrombocytopenia, unspecified; D72.819 Decreased white blood cell count, unspecified; F32.9 Major depressive disorder, single episode, unspecified